=== PATIENT | male | born 1940 | race Caucasian/White ===

== ENCOUNTER 2017-01-14 13:44 | Observation (INO) | payer MEDICARE ==
[~2017-01-14] VITALS: Ht 180.3 cm; Wt 71.2 kg
[2017-01-14 14:14] LABS: BASOPHILS % (AUTO) 0.8 % (0.0-2.0); EOSINOPHILS % (AUTO) 2.9 % (0.0-3.0); LYMPHOCYTES % (AUTO) 11.1 % (20.0-45.0); MEAN CORPUSCULAR HEMOGLOBIN 31.3 PG (27.0-31.0); MEAN CORPUSCULAR HGB CONC 32.2 G/DL (32.0-36.0); MEAN CORPUSCULAR VOLUME 97 FL (80-99); MEAN PLATELET VOLUME 6.5 FL (6.5-10.1); MONOCYTES % (AUTO) 5.7 % (1.0-10.0); NEUTROPHILS % (AUTO) 79.6 % (45.0-75.0); PLATELET COUNT 262 K/UL (150-450); RED BLOOD COUNT 4.58 M/UL (4.70-6.10); RED CELL DISTRIBUTION WIDTH 12.1 % (11.6-14.8)
[2017-01-14 14:25] LABS: ALANINE AMINOTRANSFERASE 16 U/L (3-41); ALBUMIN/GLOBULIN RATIO 1.4 (1.0-2.7); ANION GAP 12 (5-15); ASPARTATE AMINO TRANSFERASE 21 U/L (5-40); CALCIUM 10.3 mg/dL (8.6-10.2); CARBON DIOXIDE 30 mEQ/L (20-30); CHLORIDE 101 mEQ/L (98-107); CREATININE 0.9 mg/dL (0.7-1.2); HEMOLYSIS 24; POTASSIUM 3.6 mEQ/L (3.4-4.9); SODIUM 143 mEQ/L (135-145); TOTAL PROTEIN 6.7 g/dL (6.6-8.7); TROPONIN I < 0.30 ng/mL (<=0.30)
[2017-01-14 14:36] LABS: CKMB < 1.5 ng/mL (< 6.7)
--- NOTE | 2017-01-14 14:40 | Diagnostic Imaging Report ---
Indication: Altered metal status and generalized weakness Technique: spiral acquisitions obtained through the brain. Angled axial and coronal 5 x 5 mm slices were reconstructed. No IV contrast utilized. Radiation dose was minimized using automated exposure control Total dose length product 1383 mGycm. CTDIvol(s) 70 mGy Comparison: none FINDINGS: No acute hemorrhage or edema. No mass effect or midline shift. There is age-related enlargement of the ventricles and extra axial CSF spaces. There is periventricular deep white matter ischemic change. Normal norton-white differentiation. Visualized orbits are unremarkable. There is frontal and ethmoid sinus disease. Intact calvarium. IMPRESSION: Chronic and age-related changes. Negative for acute intracranial bleed or mass effect The CT scanner at [facility] is accredited by the [employer] and the scans are performed using protocols designed to limit radiation exposure to as low as reasonably achievable to attain images of sufficient resolution adequate for diagnostic evaluation
--- NOTE | 2017-01-14 14:58 | Emergency Room Report ---
History of Present Illness General Chief Complaint: Generalized Weakness Source: Patient, EMS Present Illness HPI 76 YOM BIBEMS from board and care for "weakness" per EMS. Patient states other residents felt that he "wasnt registering." He's not sure why he is here. Denies focal weakness, chest pain, SOB, abd pain, nausea/vomiting, fever/chills , urinary complaints. Not sure on medical history, thinks he takes a HTN medication. Denies ETOH, drug use. Endorses "I have some alzheimers." Allergies: Coded Allergies: No Known Allergies (Unverified , 01/14/17) Patient History Past Medical History: dementia Past Surgical History: none Pertinent Family History: none Social History: Denies: alcohol use, drug use, smoking Immunizations: UTD Reviewed Nursing Documentation: PMH: Agreed, PSxH: Agreed Nursing Documentation-PMH Past Medical History: No History, Except For Hx Hypertension: Yes Hx Neurological Problems: Yes - ANXIETY, BIPOLAR Review of Systems All Other Systems: negative except mentioned in HPI Physical Exam Vital Signs Date Time Temp Pulse Resp B/P Pulse Ox O2 Delivery O2 Flow Rate FiO2 01/14/17 13:40 100.0 70 18 128/72 96 Room Air Sp02 EP Interpretation: reviewed, normal General Appearance: normal inspection, well appearing, no apparent distress, alert, GCS 15, non-toxic Head: normocephalic, atraumatic Eyes: bilateral eye EOMI, bilateral eye PERRL ENT: normal ENT inspection, hearing grossly normal, normal voice Neck: normal inspection, full range of motion, supple, no bony tend Respiratory: normal inspection, lungs clear, normal breath sounds, no rhonchi, no respiratory distress, no retraction, no accessory muscle use, no wheezing Cardiovascular #1: regular rate, rhythm, no edema Gastrointestinal: normal inspection, normal bowel sounds, non tender, soft, no guarding, no hernia Genitourinary: no CVA tenderness Musculoskeletal: normal inspection, back normal, normal range of motion, Librado' s Sign negative Neurologic: normal inspection, alert, responsive, veterinary physiologist III-XII nml as tested, motor strength/tone normal, speech normal, other - alert oriented x1 person. Doesnt know day, month, year. Thinks its 2010 Psychiatric: normal inspection, judgement/insight normal, mood/affect normal Medical Decision Making Medicare Attestation I Bart Zhang MD hereby attest that the medical record entry for date of service, 09/16/16 accurately reflects signatures/notations that I made in my capacity as MD when I treated/diagnosed the above listed Medicare beneficiary. I attest that this information is true, accurate and complete to the best of my knowledge. I understand that any falsification, omission, or concealment of material fact may subject me to administrative, civil, or criminal liability. This patient warrants hospital admission for extreme of age and has a condition that cannot be treated as outpatient. Diagnostic Impression: Primary Impression: Episode of generalized weakness Additional Impression: Altered mental status, unspecified ER Course 76 YOM for ?AMS, weakness. VSS. Afebrile. Labs: Mild leuks 11k. H&H stable. Troponin 0. ECG is NSR, no ischemia. CT head: No acute CVA, ICH, mass effect CXR no pna UA pending Utox pending Will give empiric Levo for UTI vs PNA as possible cause of AMS although unlikely PNA or sepsis given well appearance, normal vital signs. Endorsed to Dr Johnson for med/surg admitssion at 256pm EKG Diagnostic Results Rate: normal Rhythm: NSR ST Segments: no acute changes ASA given to the pt in ED: No Rhythm Strip Diag. Results EP Interpretation: yes Rate: 76 Rhythm: NSR, no PVC's, no ectopy Chest X-Ray Diagnostic Results EP Interpretation: Yes Findings: no consolidation, no effusion, no pneumothorax, no acute cardiopulmonary disease Number of Views: 1 Last Vital Signs Date Time Temp Pulse Resp B/P Pulse Ox O2 Delivery O2 Flow Rate FiO2 01/14/17 13:40 100.0 70 18 128/72 96 Room Air Status: improved Disposition: ADMITTED INPATIENT Condition: Serious BART ZHANG M.D. Jan 14, 2017 14:58
[2017-01-14] MEDS ORDERED: ATORVASTATIN CA40 MG ORAL (15:11)
[2017-01-14] MEDS ORDERED: GABAPENTIN100 MG ORAL (15:11)
[2017-01-14] MEDS ORDERED: ASPIRIN81 MG ORAL (15:11)
[2017-01-14] MEDS ORDERED: DONEPEZIL HCL5 M2 ORAL (15:11)
[2017-01-14] MEDS ORDERED: HYDROCHLOROTH12.5 M2 ORAL (15:11)
[2017-01-14] MEDS ORDERED: BISACODYL5 MG ORAL (15:11)
[2017-01-14] MEDS ORDERED: COLACE100 MG ORAL (15:11)
[2017-01-14 15:16] VITALS: BP 130/50
[2017-01-14] MEDS ORDERED: Tubing IV Secondary IV ONE (15:54)
--- NOTE | 2017-01-14 16:02 | History & Physical ---
History and Physical History & Physicial H&P dictated [id number] check influenza check lithium level check Ua RLE US r/o DVT JULIANNE STACK M.D. Jan 14, 2017 16:02
--- NOTE | 2017-01-14 16:32 | Diagnostic Imaging Report ---
Indication: Chest pain Technique: One view of the chest Comparison: none Findings: No acute infiltrates, effusions, or congestion. Tortuous ectatic aorta. Normal heart size. Upper mediastinum unremarkable. Impression: No acute process.
[2017-01-14 16:47] LABS: APPEARANCE,URINE CLEAR; KETONES,URINE NEGATIVE (NEGATIVE); LEUKOCYTE ESTERASE ,URINE 1+ (NEGATIVE); NITRITE,URINE NEGATIVE (NEGATIVE); PH,URINE 7 (4.5-8.0); PROTEIN,URINE NEGATIVE (NEGATIVE); UROBILINOGEN,URINE NORMAL MG/DL (0.0-1.0)
[2017-01-14 17:16] LABS: BACTERIA,URINE FEW /HPF
[2017-01-14 17:31] VITALS: BP 122/63
[2017-01-14 19:22] VITALS: BP 123/48
[2017-01-14] MEDS ORDERED: Milk of Magnesia 30ml Ud ORAL PRN (20:00)
[2017-01-14] MEDS: Enoxaparin 40mg Inj SUBQ SCH (21:33)
[2017-01-14] MEDS ORDERED: cefTRIAXone 1 GM in D5W 110 ML IVPB SCH (22:00)
[2017-01-15] VITALS: BP_SYST 134; BP_SYST 148; BP_DIAS 62; BP_DIAS 74
--- NOTE | 2017-01-15 00:37 | History and Physical Report ---
DATE OF ADMISSION: 01/14/2017 CHIEF COMPLAINT: Unilateral weakness as well as change in mental status. HISTORY OF PRESENT ILLNESS: This is a 76-year-old male with history of Alzheimer's dementia, BPH status post prostatectomy, bipolar disorder on lithium, and hypercholesterolemia, who presents to the emergency room for unilateral weakness while he was at assisted living facility as well as a little bit of changes in his mental status. The patient's durable power of state's attorney is his brother, who is here. At baseline, the patient is able to talk in his regular self. At this point, on my examination, the patient knows where he is and knows his name. He does not know the date or president. His brother says that he is about at his baseline. The patient does have some difficulty getting up per brother, which has been going on for the last few months and has some low back pain. His right leg is noted to be a little bit more swollen than left leg. He walks with a front wheel walker, but he is mostly bed-bound. PAST MEDICAL HISTORY: Includes BPH, dementia, bipolar disorder, and hyperlipidemia. PAST SURGICAL HISTORY: Hernia repair and prostatectomy. MEDICATIONS: Reviewed in [facility]. ALLERGIES: No known drug allergies. PAST SOCIAL HISTORY: The patient does not smoke, drink alcohol, or use any drugs. He lives in an assisted living facility called [facility]. REVIEW OF SYSTEMS: Review of systems is limited based on patient's memory. Most of the information was obtained from hot cell technician as well as brother who are here. PHYSICAL EXAMINATION: VITAL SIGNS: Temperature 98.8 degrees, pulse 61, respiratory rate 16, blood pressure 130/50, and O2 saturation is 98% on room air. GENERAL: The patient is in no acute distress. The patient is alert, awake, and oriented to time, person, and place. HEENT: Normocephalic/atraumatic. NECK: Supple. No JVD. LUNGS: Clear to auscultation bilaterally. No crackles, rhonchi, or rales. CARDIOVASCULAR: Regular rate and rhythm. Normal S1 and S2. ABDOMEN: Soft, nontender, and nondistended. EXTREMITIES: No clubbing or cyanosis. There is 2+ right lower extremity pitting edema moreover the foot, which is asymmetric. NEUROLOGIC: The patient can move all extremities. He has 3/5 motor on the right leg and 4/5 motor in all other extremities. No focal deficits noted on my exam. He is speaking clearly. SKIN: The patient has no rashes. Normal skin inspection. LABORATORY DATA: CBC, white count of 11, hemoglobin 14.3, and platelet count 262,000. BMP, sodium 143, potassium 3.6, chloride 101, CO2 20 to 30, BUN 16, and creatinine 0.9. Calcium is 10.3. Albumin is 4. LFTs are within normal range. First troponin is less than 0.30. Head CT shows no acute process, chronic age-related changes, and no acute stroke. ASSESSMENT AND PLAN: 1. Change in mental status with underlying dementia-the patient appears to be at baseline at this time. However, we will check for causes that may precipitate change in mental status including urinary tract infection. 2. Low-grade temperature in the emergency room-rule out influenza. 3. Right lower extremity swelling to rule out deep vein thrombosis. 4. Dementia. 5. Benign prostatic hypertrophy. 6. Bipolar disorder. 7. Hyperlipidemia. PLAN: 1. Check lithium level, which may cause a change in mental status. 2. Check UA to rule out urinary tract infection. 3. We will check right lower extremity ultrasound to rule out DVT. 4. Resume current medications except hydrochlorothiazide. 5. CT brain is negative for stroke. 6. Intravenous fluids. 7. Check influenza swab. 8. If the patient has any positive findings from the above test, may warrant admission to med/surg. Awaiting rest of the laboratory results. Santhosh Johnson MD DR: ASHER JOB#: [id number] CC:
[2017-01-15 04:00] VITALS: BP 148/74
[2017-01-15 07:38] LABS: BASOPHILS % (AUTO) 0.6 % (0.0-2.0); EOSINOPHILS % (AUTO) 4.3 % (0.0-3.0); LYMPHOCYTES % (AUTO) 19.2 % (20.0-45.0); MEAN CORPUSCULAR HEMOGLOBIN 31.6 PG (27.0-31.0); MEAN CORPUSCULAR HGB CONC 32.5 G/DL (32.0-36.0); MEAN CORPUSCULAR VOLUME 97 FL (80-99); MEAN PLATELET VOLUME 5.9 FL (6.5-10.1); MONOCYTES % (AUTO) 6.3 % (1.0-10.0); NEUTROPHILS % (AUTO) 69.5 % (45.0-75.0); PLATELET COUNT 242 K/UL (150-450); RED BLOOD COUNT 4.69 M/UL (4.70-6.10); RED CELL DISTRIBUTION WIDTH 11.9 % (11.6-14.8); WHITE BLOOD COUNT 7.2 K/UL (4.8-10.8)
[2017-01-15 07:56] LABS: ANION GAP 15 (5-15); CALCIUM 10.3 mg/dL (8.6-10.2); CARBON DIOXIDE 29 mEQ/L (20-30); CHLORIDE 100 mEQ/L (98-107); CREATININE 0.8 mg/dL (0.7-1.2); HEMOLYSIS 24; POTASSIUM 3.5 mEQ/L (3.4-4.9); SODIUM 144 mEQ/L (135-145)
[2017-01-15 08:00] VITALS: BP 139/72
[2017-01-15] MEDS ORDERED: Donepezil 5mg Tab ORAL SCH (09:00)
[2017-01-15] MEDS ORDERED: Aspirin Baby 81mg ORAL SCH (09:00)
--- NOTE | 2017-01-15 10:23 | Diagnostic Imaging Report ---
APPROVED REPORT CPT Code: 81303 Present Symptoms Lower Extremity Edema: Right RIGHT LEG: Venous imaging reveals a patent deep venous system. There is no evidence of thrombus within the femoral, popliteal or tibial segments. The greater saphenous vein is also within normal limits. Doppler indicates normal spontaneous flow within these segments.
[2017-01-15 12:00] VITALS: BP 139/75
--- NOTE | 2017-01-15 15:34 | Wound Care Consultation ---
Wound Assessment Wound Assessment #1: Wound Present on Admission: Yes New Wound: No Status Change of Wound: No Wound Location Body Site Modif: mid Wound Location Body Site: sacral Wound Type: pressure ulcer Mane Test: Does not Mane Pressure Ulcer Stage: deep tissue injury Wound Thickness: Full Thickness Wound Length: 4.5 Wound Width: 4.5 Wound Depth: utd Percent of Wound Purple/Maroon: 100 Wound Drainage Amount: None Wound Drainage Odor: None/Absent Tissue Surrounding Wound: Erythemic Wound General Appearance: Reddened Wound Assessment #2: Wound Number: #2 Wound Present on Admission: Yes New Wound: No Status Change of Wound: No Wound Location Body Site Modif: mid Wound Location Body Site: coccyx Wound Type: pressure ulcer Mane Test: Does not Mane Pressure Ulcer Stage: II Wound Thickness: Partial Thickness Wound Length: 0.5 Wound Width: 0.5 Wound Depth: 0.1 Percent of Wound [place]/Red: 100 Wound Drainage Description: Serosanguineous Wound Drainage Amount: Scant Wound Drainage Odor: None/Absent Tissue Surrounding Wound: Erythemic Wound General Appearance: Reddened Wound Assessment #3: Wound Number: #3 Wound Present on Admission: Yes New Wound: No Status Change of Wound: No Wound Location Body Site Modif: right Wound Location Body Site: toe - big Wound Type: scab Mane Test: Does not Mane Wound Thickness: Full Thickness Wound Length: 0.3 Wound Width: 0.3 Wound Depth: utd Percent of Wound Black/Brown: 100 Wound Drainage Amount: None Wound Drainage Odor: None/Absent Tissue Surrounding Wound: Erythemic Wound General Appearance: Reddened Wound Comment #1 Sacral DTI pressure ulcer #2 Coccyx stag II pressure ulcer #3 Right big to dry scab Recommendation -Sacral and Coccyx area Cleanse with saline, pat dry, apply Triad cream, cover with Biatain Silicon Daily and PRN soiled/dislodged -Right big toe dry scab Cleanse with saline pat dry apply Skin barrier film and leave area open to air -Keep clean and dry -Turn and reposition -Optimize nutrition -Low air loss overlay mattress -Heel protector on both heels -Assess and f/u accordingly for any changes MANNY HAMMOND RN Jan 15, 2017 15:34
[2017-01-15 16:00] VITALS: BP 133/53
[2017-01-15] MEDS ORDERED: Artificial Tears 1.4% Op Soln BOTH EYES SCH (18:00)
[2017-01-15 19:00] VITALS: BP 125/65
--- NOTE | 2017-01-15 19:43 | Discharge Instructions ---
Discharge Instructions Discharge Instructions Call MD/Return to Hospital if: worsening symptoms Diet: regular Resume Normal Activity?: Yes For Congestive Heart Failure Reminder Report to your physician any weight gain of 5 pounds or more in one week. JULIANNE STACK M.D. Jan 15, 2017 19:43
--- NOTE | 2017-01-15 19:48 | Discharge Summary ---
Discharge Summary Hospital Course Date of Admission Jan 14, 2017 at 15:53 Date of Discharge Admitting Diagnosis WEAKNESS AND ALTERD MENTAL STATUS HPI Max Peres is a 76 year old male who was admitted on Jan 14, 2017 at 15:53 for Weakness,Altered Mental Status d/c summary dictated [id number] Discharge Condition Upon Discharge: stable Discharge Disposition Patient was discharged to [facility] Discharge Diagnoses: Discharge Instructions Discharge Instructions Call MD/Return to Hospital if: worsening symptoms JULIANNE STACK M.D. Jan 15, 2017 19:48
[2017-01-15] MEDS: Enoxaparin 40mg Inj SUBQ SCH (21:07)
--- NOTE | 2017-01-15 23:10 | Cardiology Report ---
APPROVED REPORT EKG Measurement Heart [id number] Normal sinus rhythm Nonspecific T wave abnormality Abnormal ECG
--- NOTE | 2017-01-16 05:18 | Discharge Summary ---
DATE OF ADMISSION: 01/14/2017 DATE OF DISCHARGE: 01/15/2017 REASON FOR ADMISSION: Change in mental status. SIGNIFICANT FINDINGS: None. PROCEDURES DONE: None. BRIEF HOSPITAL COURSE AND SUMMARY: This is a 76-year-old male with history of Alzheimer disease, BPH, status post prostatectomy, bipolar disorder, on lithium, and hypercholesterolemia, who presented to the emergency room for unilateral weakness as well as change in mental status. He was found to have urinary tract infection. The history is limited because of dementia, however, there was a change from his baseline. A CT of his head showed no acute process, including stroke. The patient was started on antibiotics. He did have a low-grade temperature as well as elevated white count with resolution of his fever and a decrease in his white count after starting antibiotics. The patient therefore got discharged back to assisted living facility. DISCHARGE CONDITION: Stable. DISCHARGE INSTRUCTIONS: The patient to follow up with . The patient has home health with physical therapy and front-wheel walker. The patient is to return to the hospital for worsening condition or symptoms. The patient to ambulate as tolerated. DISCHARGE MEDICATIONS: To resume home medications except diuretics. DISCHARGE DIAGNOSES: 1. Urinary tract infection with metabolic encephalopathy. 2. Alzheimer's dementia. 3. History of benign prostatic hypertrophy with prostatectomy. 4. Bipolar disorder. 5. Hyperlipidemia. TIME SPENT ON DISCHARGE: Greater than 35 minutes. Santhosh Johnson MD DR: SARAH JOB#: [id number] CC:
== END 2017-01-15 21:50 | disposition home health service (06) ==
LOC: EDBD 13:44 → EMR 14:14 → 4E 15:53 → INTOOBSV 15:53 → EDBEDREQ 17:55 → 4E 18:44
DX: G93.41 Metabolic encephalopathy (principal); N39.0 Urinary tract infection, site not specified; G30.9 Alzheimer's disease, unspecified; F02.80 Dementia in other diseases classified elsewhere, unspecified severity, without behavioral disturbance, psychotic disturbance, mood disturbance, and anxiety; F31.9 Bipolar disorder, unspecified; E78.5 Hyperlipidemia, unspecified; I10 Essential (primary) hypertension; Z87.438 Personal history of other diseases of male genital organs; Z90.79 Acquired absence of other genital organ(s)
CPT/HCPCS: 36415 ×2; 70450; 71010; 80048; 80053; 80178; 81003; 82550; 82553; 84484; 85025 ×2; 86710; 87040; 87081 ×2; 92526; 92610; 93005; 93971; 96374; 97110; 97116; 97162; 97530; 97532; 99285; G0378 ×2; G0379; G8978; G8979; G8996; G8997; J0696; J1650 ×2; J1956